=== PATIENT | male | born 1985 | race Caucasian/White ===

== ENCOUNTER 2017-12-14 08:10 | Inpatient (IN) | payer OTHER ==
[~2017-12-14] VITALS: Ht 177.8 cm; Wt 204.3 kg
[~2017-12-14 08:10] MED LIST: ACETAMINOPHEN-1 EACH PO; BACTRIM DS TAB1 EACH PO; MELATONIN3 MG PO; [UNRECOGNIZED DRUG - OTHER] PO
--- NOTE | 2017-12-14 15:01 | NUR ---
PT RECEIVED FROM ED. ADMISSION INTAKE COMPLETED. IV FLUIDS INFUSING D5LR AT 125 ML/HR. PT RATING PAIN 2/10, DELCINED NEED FOR PAIN MEDICATION. PT DENIES NAUSEA, BOWEL TONES HYPOACTIVE, ABD TENDER, HERNIA VISIBLE. PT ON ROOM AIR, LUNG SOUNDS CLEAR. CMS INTACT, WITHOUT EDEMA. SKIN GROSSLY INTACT. PT PROVIDED MOUTH SWABS FOR COMFORT. PT DENIES OTHER NEEDS AT THIS TIME. DISCUSSED PLAN OF CARE.
--- NOTE | 2017-12-14 16:39 | NUR ---
ASKED PATIENT IF HE NEEDED ANYTHING AND HE SAID NO.
--- NOTE | 2017-12-14 17:09 | NUR ---
PT RATING PAIN 4-5/10 AFTER MORPHINE ADMINISTARATION. LR BLOUS COMPLETED. IV ACETOMINOPHEN INFUSING. PT CONTNIUES TO BE FLUSHED. HR 114 ON TELEMETRY.
--- NOTE | 2017-12-14 17:51 | NUR ---
MED REC COMPLETE
[2017-12-14] MEDS ORDERED: IBUPROFEN200 MG PO (17:52)
--- NOTE | 2017-12-14 17:55 | NUR ---
PRESURGICAL WIPES COMPLETED. INFORMED CONSENT SIGN AND PLACED ON CHART. PT RESTING IN BED. PT DENIES OTHER NEEDS AT THIS TIME.
--- NOTE | 2017-12-14 19:10 | NUR ---
SHIFT REPORT RECIEVED. PATIENT RESTING IN BED. STATES HIS PAIN IS WELL CONTROLLED AT THIS TIME. FAMILY IN ROOM. SURGERY STAFF UP TO ROOM TO TAKE PATIENT FOR SURGERY. 2000 DOSE OF ABX SCANNED AND GIVEN TO ADVERTISING COPYWRITER.
--- NOTE | 2017-12-14 19:25 | NUR ---
PT DOWN TO OR VIA BED AT THIS TIME.AWAKE, CALM, ACOMPANIED BY 2 PRINCIPAL NETWORK ARCHITECT'S
--- NOTE | 2017-12-14 22:00 | NUR ---
PT ARRIVES TO ICU ROOM 129 POST OP RECOVERY PT, ACCOMPANIED BY PACU NURSES AND ANESTHESIA.
--- NOTE | 2017-12-14 22:30 | NUR ---
ASSUMED CARE OF PT FROM JOSE GUADALUPE CLARK, REPORT GIVEN. PT IS RESTING COMFORTABLE, AWAKENS EASILY TO VOICE AND DENIES PAIN AT THIS TIME. RESTING HR IN THE 90'S. JPX3 IN PLACE WITH SMALL AMT CLOUDY FLUID IN ALL. RT IN WORKING WITH PT, PT PLACED ON BIPAP, 30% FIO2 12/5 SPO2 95%.
--- NOTE | 2017-12-14 22:39 | NUR ---
12/14/17 2239 Heather Dean RT IS AT THE BEDSIDE SETTING UP BIPAP MACHINE. VERBAL REPORT IS GIVEN TO CCU RN, ELIESER AND HER QUESTIONS ARE ANSWERED. DR. SWEENEY IS IN TO SPEAK WITH THE PATIENT AND HIS QUESTIONS ARE ANSWERED.
--- NOTE | 2017-12-14 23:30 | NUR ---
PT CONT TO REST COMFORTABLE WEARING BIPAP, SPO2 98% RR 18 FIO2 30% 07/19, URINE QUANTITY SUFFICIENT. BPS A BIT ELEVATED, WILL CONTINUE TO MONITOR. EX SPOUSE MELLY CALLED AND GIVEN UPDATE.
--- NOTE | 2017-12-15 01:04 | NUR ---
PT CONT TO REST WEARING BIPAP, VSS.
--- NOTE | 2017-12-15 01:05 | NUR ---
URINE OUTPUT 75ML/HR THE LAST TWO HOURS. HR 80'S RR 18 SPO2 100% ON BIPAP.
--- NOTE | 2017-12-15 02:13 | NUR ---
BP'S STILL HIGH, PT AWAKE NOW, MORPHINE 5MG IV GIVEN FOR ABD PAIN. BIPAP OFF PER REQUEST, SPO2 96% ON ROOM AIR. WATER GIVEN PER REQUEST, PT ADVISED TO START WITH SLOW SIPS. HR REMAINS 90'S, WILL CONT TO MONITOR BP AND URINE OUTPUT.
--- NOTE | 2017-12-15 02:30 | NUR ---
BP DOWN AFTER GIVEN MORPHINE, PT RESTFUL BACK TO SLEEPING WEARING BIPAP.
--- NOTE | 2017-12-15 04:37 | NUR ---
AWAKENS FOR ASSESSMENT, BACK TO SLEEP WITH BIPAP ON
--- NOTE | 2017-12-15 06:02 | NUR ---
AWAKENS AND ASKS FOR PAIN MEDICINE. MARQUEZ REMOVED. IV ABX HUNG AND PRN MORPHINE GIVEN, BIPAP REMOVED AND PT O2 SATS 94% ON ROOM AIR.
--- NOTE | 2017-12-15 08:30 | NUR ---
IN PT ROOM FOR INITIAL ASSESSMENT. PT UP IN RETURNED TO BED FROM RECLINER DUE TO POSITIONAL DISCOMFORT. PT IS ALERT AND ORIENTED TIMES 4. NO COMPLAINTS OF PAIN. SURGICAL SITE DRESSINGS ARE CLEAN, DRY AND INTACT. NO DRAINAGE FROM JOANA SITES AT THIS TIME. PT TOLERATING CLEAR LIQUIDS WITHOUT COMPLAINTS OF PAIN, DISCOMFORT, OR NAUSEA. PT RESTING COMFORTABLY IN BED, CALL LIGHT WITHIN REACH. PT PUT BIPAP BACK ON WHILE RESTING. NO FURTHER REQUESTS AT THIS TIME.
--- NOTE | 2017-12-15 10:00 | NUR ---
IN TO ASSIST PT WITH BIPAP PLACEMENT. PT STATES PAIN IS WELL CONTROLLED. CALL LIGHT WITHIN REACH. NO FURTHER REQUESTS AT THIS TIME.
--- NOTE | 2017-12-15 10:27 | NUR ---
PT CURENTLY SLEEPING APPEARS TO BE COMORFTABLE AT THIS TIME. RESP RATE REGULA AND UNLABORED AT THIS TIME. HE IS SLEEPING WITH THE HOB ELEVATED. SCD'S INPLACE AND ON.
--- NOTE | 2017-12-15 10:53 | NUR ---
PT UP AND BACK TO BED FROM BATHROOM, STATES HIS PAIN LEVEL NOW IS A "9" WITH A GOAL OF 2-3. PT DENIES NAUSEA OR SOB. PAIN MEDICATION GIVEN PER ORDER. WILL CONTINUE TO MONITOR PAIN. CALL LIGHT WITHIN REACH.
--- NOTE | 2017-12-15 10:53 | NUR ---
PT AMBULATED TO BATHROOM AND BACK TO BED, ONE PERSON ASSIST DUE TO IV LINE AND HEART MONITOR.
--- NOTE | 2017-12-15 11:08 | NUR ---
PT STATES PAIN IS "NOW A 6 AND GOING DOWN". DENIES SOB OR NAUSEA. PT RESTING IN BED WITH CALL LIGHT WITHIN REACH.
--- NOTE | 2017-12-15 12:46 | NUR ---
pt has family in the room visiting with him at this time. pt alert and oriented x4, vitals wnl.
--- NOTE | 2017-12-15 13:34 | NUR ---
PT UP TO THE BATHROOM VOIDED AND THEN BACK TO BED, SCD'S INPLACE.
--- NOTE | 2017-12-15 14:12 | NUR ---
PT RESTING IN BED-ALERT AND ORIENTED. HE SAID HE IS FEELING MUCH BETTER, AND SAID TRIED TO SLEEP, BUT HAD LITTLE LUCK. PT STATED HE UNDERSTOOD PAIN SCALE-HE USES IT AT WORK. EXTENDED A BLESSING, WILL FOLLOW NEEDED
--- NOTE | 2017-12-15 14:50 | NUR ---
PT BACK UP TO THE BATHROOM HAVING TO HAVE BM AT THIS TIME. ASSISTED PT WITH ALL THE TUBES AND LINES AT THIS TIME. PT DENIES PAIN AT THIS TIME.
--- NOTE | 2017-12-15 15:07 | NUR ---
PT UP TO THE BATHROOM VOIDED AND HAD NO BM AT THIS TIME. BACK TO BED, CPAP INPLACE TO SLEEP.
--- NOTE | 2017-12-15 17:43 | NUR ---
DR SWEENEY INTO SEE PT TRANSFER ORDERS FOR PT TO RETURN TO THE M/S UNIT [facility]. PT WAS PLACED ON TELE #1. PT HAS FRIST DEGREE AV BLOCK. PT IS CURRENTLY UP IN THE ROOM VOIDING WELL AND DINNER ORERED. PT BED AND ALL PERSONAL BELONGINGS WILL GO WITH PT.
--- NOTE | 2017-12-15 18:04 | NUR ---
REPORT GIVEN TO RAFAT ALL QUESTIONS ANSWERED AT THIS TIME. ABX'S AND CHART TAKEN TO M/S UNIT ALSO AT THIS TIME. PT WAS TRANSFERED VIA AMBULATION.
--- NOTE | 2017-12-15 18:33 | NUR ---
REPORT RECIEVED FROM CLARISSA CLARK. ROUNDED WITH DR. VALERO WHO IS CONSULTING ON PATIENT. MANUAL BLOOD PRESSURES NEED TO BE DONE WITH LARGE CUFF, NO WRIST CUFF TO BE USED FROM NOW ON. PATIENT LUNG SOUNDS CLEAR, HR REGULAR. ON TELE #1. PATIENT TOLERATED LOW FIBER DIET WELL, NO NAUSEA. BOWEL TONES ACTIVE THROUGHOUT. JOANA DRAINS DRAINING WELL. AND PUNCTURE SITES C/D/I. NO SIGNS OF INFECTION.
--- NOTE | 2017-12-15 18:49 | NUR ---
LEFT MESSAGE FOR DR. SWEENEY, PATIENT WANTING TO BE SL, PATIENT URINE OUTPUT >3400 ML OUT.
--- NOTE | 2017-12-15 19:05 | NUR ---
SHIFT REPORT RECEIVED. PATIENT RESTING IN BED. NO NEEDS AT THIS TIME. GOOD PAIN CONTROL.
--- NOTE | 2017-12-15 20:13 | NUR ---
pt resting in bed alert and oriented. pt requested tn take his temp, 98.3
--- NOTE | 2017-12-15 21:25 | NUR ---
VITALS AND I&OS DONE AND CHARTED. BEDSIDE TABLE AND CALL LIGHT WITHIN REACH. PT NEEDS NOTHING ELSE AT THIS TIME.
--- NOTE | 2017-12-15 22:00 | NUR ---
PATIENT ASSESSMENT COMPLETED. PATIENT IS RESTING IN BED USING CELL PHONE. IV ABX STARTED. IV SITE WNL. PAIN WELL CONTROLLED AT THIS TIME. ABD IS ROUND, FIRM, AND TENDER. BOWEL SOUNDS ACTIVE. DRAINS IN PLACE, OUTPUT IS PURULENT. DRESSINGS ARE INTACT WITH SMALL AMOUNT OF DRAINAGE. LUNGS SOUND CLEAR. SCDS IN USE. CMS INTACT. PATIENT'S SKIN IS RED OVER ENTIRE UPPER BODY. HE DENIES ITCHING AND THE SKIN IS NOT HOT TO THE TOUCH. VS WNL. PATIENT DENIES ANY NEEDS AT THIS TIME. TOLERATING ORAL FLUIDS.
--- NOTE | 2017-12-16 00:05 | NUR ---
PATIENT MOVED TO ROOM 109. PATIENT REQUEST PRN PAIN MEDS WHICH WERE PROVIDED. HE DENIES TOILETING NEEDS AT THIS TIME. HE WENT BACK ON THE CPAP. CALL LIGHT IN REACH.
--- NOTE | 2017-12-16 02:25 | NUR ---
PATIENT AWAKE AND OFF CPAP. SAYS HE HAS BEEN UP A WHILE, STATES THIS IS NORMAL FOR HIM TO SLEEP IN SMALL CHUNKS. IV ABX STARTED. PATIENT DENIES NEEDS. PAIN 2/. FRESH WATER PROVIDED. JOANA DRAINS ON RIGHT SIDE EMPTIED FOR 35MLS OF SEROSANGUINEOUS FLUID. DRAIN ON LEFT SIDE HAS MINIMAL DRAINAGE.
--- NOTE | 2017-12-16 06:12 | NUR ---
pt up to bathroom to void assist in tubes then pt independent to bathroom ambulating. pt reports pain increased from 5/10 to 8/10 with activity. pt administered two tabs percocet at this time.
--- NOTE | 2017-12-16 06:50 | NUR ---
PATIENT SLEPT OFF AND ON THROUGHOUT THE SHIFT. PAIN CONTROLLED WITH PRN PERCOSET. CPAP WHILE SLEEPING. MANUAL BP ONLY. MOVED FROM 108 TO 109. NOT OUT OF BED. TOLERATING DIET. LAP SITES COVERED, WNL. DRAINS X3, MODERATE OUTPUT. NEW IV SITE THIS AM, IV ABX.
--- NOTE | 2017-12-16 06:56 | NUR ---
IV SITE STARTED TO BURN. APPEARS INFILTRATED. NEW SITE STARTED BY DELGADO GRANDE.
--- NOTE | 2017-12-16 07:40 | NUR ---
PATIENT TRANSFERRED FROM BED TO CHAIR. 1 PERSON SBA. PATIENT NOW SITTING UP IN CHAIR. CALL LIGHT WITHIN REACH. WASHCLOTH FOR FACE. NO OTHER NEEDS AT THIS TIME.
--- NOTE | 2017-12-16 10:03 | OR ---
[facility] [address], [place] [address] Signed DATE OF OPERATION: 12/14/2017 SURGEON: Derek Sweeney MD PREOPERATIVE DIAGNOSES: 1. Generalized peritonitis with free air, probable perforated diverticulitis. 2. Morbid obesity. Weight 450 pounds. 3. Incarcerated supraumbilical hernia fat only, no hollow viscus. POSTOPERATIVE DIAGNOSIS: 1. Generalized peritonitis with free air, probable perforated diverticulitis. 2. Morbid obesity. Weight 450 pounds. 3. Incarcerated supraumbilical hernia fat only, no hollow viscus. PROCEDURES: 1. Laparoscopic washout of peritoneal inflammatory fluid. 2. Placement of Ollie drains x3 (prolonged complicated difficult). ANESTHESIA: General endotracheal, Trish brown GEOGRAPHY DEPARTMENT CHAIR and local 10 mL of 0.25% Marcaine with epinephrine. 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 He is accompanied by his significant other. He had the sudden onset earlier today of severe left lower abdominal pain and presented to the emergency room where he was evaluated by Dr. Akers included a CT scan of the abdomen showing free intraperitoneal air scattered above and below the level of the mid abdomen and diverticular changes thus making the lesion accounting for free intraperitoneal likely perforated diverticulitis. He has been fluid resuscitated, given intravenous antibiotics, and is now to undergo laparoscopy with laparoscopic washout and placement of drains. It is noted he does have an incarcerated hernia entirely a fat that is in the supraumbilical area. Other options of management have been reviewed including laparotomy with La Nena's resection and other interventions. However, I think it is particularly appropriate in his situation to avoid ostomies of any type if possible under the circumstances of his Electronically Signed By: DEREK SWEENEY MD 12/16/17 1003 PATIENT NAME: ROGELIO RASMUSSEN OPERATIVE REPORT DATE OF : 89 REPORT #: [id number] PHYSICIAN: DEREK SWEENEY MD PCP: MONIQUE OBRIEN DO REPORT IS CONFIDENTIAL AND NOT TO BE RELEASED WITHOUT AUTHORIZATION [facility] [address], [place] [address] Signed very significant obesity. The risks of bleeding, infection, cardiopulmonary complications, and postoperative issues were all reviewed in detail with the patient and his girlfriend. They understand. FINDINGS: Indeed there was purulent material along the right paracolic gutter and left paracolic gutter. There was indeed incarcerated hernia of omental fat just above the umbilicus, the fascial defect being at least 4-6 cm. This was not in any way taken down so as to minimize chances of hollow viscus becoming incorporated. There was no fibrinous exudate and he would be considered Hinchey class 3 generally speaking. I saw no evidence of a perforated ulcer. The gallbladder was visualized and normal. The liver had marked fatty infiltration. Of note, the patient was a somewhat challenging airway to secure initially and his extubation was challenging to say the least, but ultimately accomplished without problem and he is mentating and doing quite well immediately postoperatively. DESCRIPTION OF PROCEDURE: The patient was brought to the operating room given a general endotracheal anesthetic using GlideScope technology and well performed indeed. A Carney catheter was placed. Sequential compression device stockings were in place. Preoperative antibiotic meropenem was already infusing. The abdomen was clipped and prepared with chlorhexidine solution and draped sterilely. He had an impressively large body related to his obesity. The palpable non reducible hernia in the supraumbilical position, which represented only fat was avoided. Given the particulars, an epigastric 10 mm port was placed. With a Marianne cannula technique, pneumoperitoneum achieved to a level of 14 mmHg of carbon dioxide gas. The laparoscope was entered into the abdomen and a purulent exudate was noted along the right paracolic gutter and on the left side as well. There was no sign of infarcted bowel or anything of that sort. Under direct visualization, a right-sided 5 mm port was placed in the right mid abdomen and subsequently another a bit lower on the right side. I changed the position to be on the left side of the table and interrogated the descending colon, the left colon there were few adherent tinea epiploica to what was likely a very recent perforation. The actual perforation could not be identified. There was no sign of well-formed abscess or anything of that sort. Copious irrigation was undertaken with antibiotic containing saline solution. Irrigation was taken in the upper abdomen as well as the pelvis and essentially all 4 quadrants of the abdomen. At least 10 L of fluid were used for this endeavor. A left-sided 5 mm port was placed allowing for placement of a 7 mm Ollie drain along the left paracolic gutter. This was secured to the skin with nylon suture. Electronically Signed By: DEREK SWEENEY MD 12/16/17 1003 PATIENT NAME: ROGELIO RASMUSSEN OPERATIVE REPORT DATE OF : [birth year] REPORT #: [id number] PHYSICIAN: DEREK SWEENEY MD PCP: MONIQUE OBRIEN DO REPORT IS CONFIDENTIAL AND NOT TO BE RELEASED WITHOUT AUTHORIZATION [facility] [address] [place], [place] [address] Signed I returned to the left side of the table allowing for irrigation of the right paracolic gutter more thoroughly and aspiration directly over the right lobe of the liver as well. Two additional drains were placed, one in the right paracolic gutter and the other in the perihepatic space centrally in the subhepatic space and portion of the right lateral lobe of the liver. Once nearly all of the irrigation fluid had been returned (greater than 9 L) and drains secured and plans were made for closure. The epigastric port site was closed with interrupted 0 Vicryl suture. Notably, all the other sites were 5 mm and of very low chance of hernia problem. Extubation of the patient was challenging due to his plethoric nature was done safely and he did require a fair amount of all hands-on deck support for his airway with mask ventilation, but ultimately he completely recovered, was awake and alert and moving all extremities without problem. He is transferred to the bariatric bed safely and transferred to intensive care for further management. The operation was rather prolonged, complicated, and difficult, but accomplished safely. MD ISAIAS Thomas/BETH /[id number] cc: Asif Akers Copies: ASIF AKERS ~ Electronically Signed By: DEREK SWEENEY MD 12/16/17 1003 PATIENT NAME: ROGELIO RASMUSSEN OPERATIVE REPORT DATE OF : 89 REPORT #: [id number] PHYSICIAN: DEREK SWEENEY MD PCP: MONIQUE OBRIEN DO REPORT IS CONFIDENTIAL AND NOT TO BE RELEASED WITHOUT AUTHORIZATION
--- NOTE | 2017-12-16 10:03 | HP ---
[facility] [facility] [address], [place] [address] Signed ADMISSION DATE: 12/14/2017 REASON FOR ADMISSION: Free intraperitoneal air, probable perforated diverticulitis. 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 He is accompanied by his significant other today. He had a sudden onset of lower abdominal pain and marked persistent abdominal pain and presented to the emergency room where he was evaluated thoroughly by Dr. Akers. In the course of his evaluation, he was found to be somewhat toxic appearing and although hemodynamically stable, clearly had significant abdominal pain for which a CT scan was performed showing free intraperitoneal air and diverticulosis, most consistent with perforated diverticulitis. He is admitted for further evaluation and care after initiation of antibiotics and preliminary orders. PAST MEDICAL HISTORY: Does include morbid obesity of 450 pounds. He has not yet taken direct measures for weight loss, so has been "thinking about it." He takes no medications chronically. He denies any sleep apnea or diabetes. SOCIAL HISTORY: He has a significant other, who has a son of his, born in 2011. He smokes one pack of cigarettes a day. Drinks vodka twice a month or so. No persistent or binge drinking. His primary care physician is Dr. Obrien. REVIEW OF SYSTEMS: He denies any chest pain, dysphagia, hematemesis or blood per rectum. He does not feel excessively thirsty at this time. PHYSICAL EXAMINATION: GENERAL: Morbidly obese, white man accompanied by his ex HEENT: His mucous membranes are slightly dry. His trachea is midline. He is able to open his mouth quite well and his airway is not as precarious as one might imagine given his advanced weight. NECK: Normal. CHEST: Shows diminished breath sounds. HEART: Regular without murmur. ABDOMEN: Quite obese, soft. There is a palpable non reducing hernia in the Electronically Signed By: DEREK SWEENEY MD 12/16/17 1003 PATIENT NAME: ROGELIO RASMUSSEN HISTORY AND PHYSICAL DATE OF : 89 REPORT #: [id number] PHYSICIAN: DEREK SWEENEY MD PCP: MONIQUE OBRIEN DO REPORT IS CONFIDENTIAL AND NOT TO BE RELEASED WITHOUT AUTHORIZATION [facility] [address], [place] [address] Signed supraumbilical area. There is mild tenderness in the left lower abdomen. No sign of ascites grossly. EXTREMITIES: No clubbing, cyanosis, or edema. LABORATORY DATA: Show a white count of 7.8, hematocrit 45.7, platelets 225,000. Chem profile is normal. Glucose is 116. Lactic acid is 1.2. Liver enzymes normal. Lipase 13. Urinalysis is normal. Coag studies show an INR of 0.9. MEDICATIONS: Reviewed, which show Tylenol cold formula 2 tablets p.o. at bedtime as needed and melatonin 3 mg p.o. at bedtime. ASSESSMENT AND PLAN: I reviewed the CT scan in detail with Dr. Horton, radiologist. He does have free air, which includes small bubbles in the region of the liver and elsewhere. He clearly does have a hernia just above the umbilicus, probably basically an umbilical hernia with omental fat. He does have diverticular changes associated with some inflammation, but no sign of abscess per se. Under the circumstances of his great obesity and his general toxicity, I would recommend laparoscopy, laparoscopic washout of peritoneal cavity, placement of drain in the appropriate position in the region of the sigmoid perforation, this is a measure to bridge to definitive resection as appropriate. In his particular situation, additional fluids will be needed now and continued broad-spectrum antibiotics. He has already been started on Unasyn previously by Dr. Akers from the emergency room. The risks of bleeding, infection, and importantly need for conversion to open operation with possible resection of the colon with a Hinchey grade 4 picture is present requiring a temporary colostomy. If there is any way to convert him from a laparotomy with ostomy that would be beneficial given his body habitus and so on. I discussed all this with the patient and his significant other and they understand and agree. MD ISAIAS Thomas/MODL /[id number] Electronically Signed By: DEREK SWEENEY MD 12/16/17 1003 PATIENT NAME: ROGELIO RASMUSSEN HISTORY AND PHYSICAL DATE OF : 89 REPORT #: [id number] PHYSICIAN: DEREK SWEENEY MD PCP: MONIQUE OBRIEN DO REPORT IS CONFIDENTIAL AND NOT TO BE RELEASED WITHOUT AUTHORIZATION [facility] [address] [place] [id number] Signed cc: DO Jose A Diazg Akers Copies: MONIQUE OBRIEN,ASIF ~ Electronically Signed By: DEREK SWEENEY MD 12/16/17 1003 PATIENT NAME: GRADYROGELIO YUKI HISTORY AND PHYSICAL DATE OF : 89 REPORT #: [id number] PHYSICIAN: DEREK SWEENEY MD PCP: MONIQUE OBRIEN DO REPORT IS CONFIDENTIAL AND NOT TO BE RELEASED WITHOUT AUTHORIZATION
--- NOTE | 2017-12-16 10:32 | NUR ---
PATIENT ATE A GOOD BREAKFAST, UP WALKING IN THE ROOM TO STRETCH AT THIS TIME. PAIN IS 3/10 AT THIS TIME. ALL 3 JOANA'S HAVE MINIMAL SEROSANGUINOUS DRAINAGE. PATIENT REMAINS IN SINUS RYTHEM ON TELE#1. BOWEL TONES ACTIVE X4, LUNGS CLEAR BUT DEMINISHED IN THE BASES.
--- NOTE | 2017-12-16 10:58 | NUR ---
PATIENT SITTING UP IN BED. FAMILY MEMBERS IN ROOM. NO OTHER NEEDS AT THIS TIME.
--- NOTE | 2017-12-16 14:38 | NUR ---
PATIENT'S PAIN IS UNDER CONTROL AT 3/10 AT THIS TIME. PATIENT IS RESTING IN BED. VISITING AT THIS TIME.
--- NOTE | 2017-12-16 14:46 | NUR ---
PATIENT SITTING UP IN BED RELAXING. CALL LIGHT WITHIN REACH. FRESH ICE WATER. NO OTHER NEEDS AT THIS TIME.
--- NOTE | 2017-12-16 15:30 | NUR ---
PATIENT'S PAIN REMAINS 3/10. SMALL AMOUNT OF DRAINAGE ON ALL 3 JOANA DRESSINGS. DRESSINGS ALL CHANGED. AREA AROUND EACH DRAIN CLEANED AND NEW DRAIN SPONGES PLACED AROUND EACH SITE AND SECURED WITH SILK TAPE. PATIENT HAS A LARGE NUMBER OF FAMILY AT BEDSIDE AND IS NOW VISITING. FAMILY ARRIVED AFTER I HAD BEGUN DRESSING CHANGES.
--- NOTE | 2017-12-16 18:44 | NUR ---
PATIENT HAS BEEN UP TO THE RECLINER FOR ALL 3 MEALS AND HAS BEEN EATING WELL. AM AND MID-DAY VS WITH MANUAL BLOOD PRESSURES HAVE BEEN OK. PATIENT'S IV WAS SALINE LOCKED THIS AM AND PATIENT WENT TO PO ANTIBIOTICS AND HAS TOLERATED THAT WELL. PATIENT VOIDING WELL AND UP TO THE BATHROOM WITH STANDBY ASSIST TO USE URINAL. PATIENT'S EVENING VITAL SIGNS REVIELED PATIENT'S ORAL TEMP TO BE 101.7F AND MANUAL DIASTOLIC B/P AT 90 WITH PATIENT HAVING HOT FLASHES THEN CHILLS. CALLED HE WAS CONSULTING. INFORMED ME HE WAS ONLY MANAGING B/P AND SAID TO CALL . 183 CALLED AND INFORMED HIM OF THE ABOVE INFORMATION AND HE ASKED TO ORDER BLOOD CULTURES X1. THIS WAS ORDERED IN THE COMPUTER AND CALLED TO SANGITA IN THE LAB TO COME AND DRAW THE CULTURE. PATIENT HAS ALSO BEEN GIVEN PERCOCET 2 TABS THREE TIMES TODAY WITH GOOD PAIN RELIEF THE FIRST 2 TIMES AND THE TRHIRD TIME JUST BEFORE THIS NOTE AND WILL NEED TO BE REASSESSED. GIVING PM REPORT.
--- NOTE | 2017-12-16 18:47 | NUR ---
PATIENT SITTING UP IN BED. PATIENT STATES PAIN LEVEL IS A 6 OUT 0F 10. RN NOTIFIED ABOUT PAIN LEVEL AND TEMPERATURE. CALL LIGHT WITHIN REACH. NO OTHER NEEDS AT THIS TIME.
--- NOTE | 2017-12-16 19:20 | NUR ---
SHIFT REPORT RECEIVED. LAB IN ROOM COLLECTING BLOOD CULTURES. PATIENT IS RED IN THE FACE BUT STATES HE FEELS "OKAY". DENIES PAIN AT THIS TIME. ENCOURAGED HIM TO GET UP TO WALK. HE AGREED.
--- NOTE | 2017-12-16 19:53 | NUR ---
PATIENT WALKING LARGE LAPS AROUND MED-SURG FLOOR. TOLERATING WELL. OCCATIONAL COUGHING. DENIES SOB. HR CONSISTENTLY IN LOW 130'S.
--- NOTE | 2017-12-16 21:20 | NUR ---
EVENING MEDS GIVEN. PATIENT RESTING IN BED. VISITING WITH FAMILY. PATIENT APPEARS COMFORTABLE. HE STATES HE IS VERY TIRED FROM WALKING. BREATHING IS EASY AND NONLABORED. HR 90'S. TELE 1. UPPER BODY AND FACE CONTINUE TO BE RED AND BLOTCHY. HE DENIES ITCHY, EXCEPT FOR HIS ABD, WHICH HE BELIEVES IF FROM IT BEING SHAVEN PRIOR TO SURGERY. HIS TEMP HAS NORMALIZED AT 98.5 F ORAL. LUNGS ARE CLEAR. ENCOURAGED COUGH & DEEP BREATHING. ABD IS LARGE, ROUND, AND TENDER. BOWEL SOUNDS ACTIVE. DRAINS IN PLACE, DRESSING C/D/I. MINIMAL DRAINAGE NOTED, OUTPUT IS CLEAR/YELLOW. SCDS IN USE. PAIN CONTROLLED AT 4/10. PATIENT DENIES NEEDS FOR PRN PERCOSET. FRESH WATER PROVIDED. PATIENT WANTING SLEEP AID, HE NORMALLY TAKES MELETONIN AND TYLENOL PM. WILL CALL
--- NOTE | 2017-12-16 21:45 | NUR ---
CALLED. NO ANSWER, LEFT MESSAGE.
--- NOTE | 2017-12-16 21:59 | NUR ---
VITALS ANDS I&OS DONE AND CHARTED. BEDSIDE TABLE AND CALL LIGHT WITHIN REACH. PT NEEDS NOTHING ELSE AT THIS TIME.
--- NOTE | 2017-12-16 22:00 | NUR ---
PATIENT'S FAMILY LEFT. CPAP SET UP FOR PATIENT TO USE FOR THE NIGHT.
--- NOTE | 2017-12-17 02:00 | NUR ---
PATIENT OFF THE CPAP FOR NOW. STATES IT IS "TOO MUCH". HE WAS UP TO THE BATHROOM. REPORTS GOOD PAIN CONTROL.
--- NOTE | 2017-12-17 04:30 | NUR ---
PATIENT UP TO HAVE A BM. MOSTLY SOFT. HE IS STARTING TO HAVE INCREASED PAIN. REQUESTED 1 TAB PERCOSET, WHICH WAS GIVEN TO HIM.
--- NOTE | 2017-12-17 05:32 | NUR ---
PATIENT SLEPT OFF AND ON THROUGHOUT SHIFT. PAIN WELL CONTROLLED. 1 TAB NORCO GIVEN X1. PATIENT REMAINS AFEBRILE THIS SHIFT. HE AMBULATED IN THE HALLWAYS MULTIPLE TIMES. ONLY WORE THE CPAP PART OF THE NIGHT. HAD A LARGE SOFT BM THIS AM. DRAINS HAVE PRODUCED MINIMAL YELLOW DRAINAGE. DRESSING C/D/I. TELE 1, HR IN 80-80 AT REST, 120-130 WHEN AMBULATING. UPPER BODY CONTINUES TO BE RED/BLOTCHY. INDEPENDENT IN THE ROOM. IV SL.
--- NOTE | 2017-12-17 07:30 | NUR ---
VITALS AND I&OS DONE AND CHARTED. FRESH WATER GIVEN. BEDSIDE TABLE AND CALL LIGHT WITHIN REACH. PT NEEDS NOTHING ELSE AT THIS TIME.
--- NOTE | 2017-12-17 08:42 | NUR ---
PATIENT UP AMBULATING IN HALLS. COMPLAINTS OF PAIN IN LOWER ABDOMEN, 3/10 ON PAIN SCALE. TOLERABLE. FULL BODY ASSESMENT DONE, PUNCTURE SITES INTACT, DRAINS CONTINUE TO PRODUCE LIGHT CLOUDY FLUID. BOWEL TONES ACTIVE THROUGOUT. PATIENT STATES " I JUST WISH I WOULD HAVE SLEPT BETTER LAST NIGHT. PATIENT IS REQUESTING MELATONIN AND BENADRYL FOR HS TONIGHT.
--- NOTE | 2017-12-17 08:48 | NUR ---
PATIENT SITTING UP IN BED. FAMILY MEMBERS IN ROOM. FRESH ICE WATER. CALL LIGHT WITHIN REACH. NO OTHER NEEDS AT THIS TIME.
--- NOTE | 2017-12-17 10:38 | NUR ---
PATIENT AMBULATED IN THE HALLS, INDEPENDENT. PATIENT SITTING UP IN BED NOW. FAMILY MEMBERS IN ROOM. PATIENT REQUESTING PAIN MEDICATION. RN NOTIFIED. CALL LIGHT WITHIN REACH. NO OTHER NEEDS AT THIS TIME.
--- NOTE | 2017-12-17 11:30 | NUR ---
PATIENT UP AMBULATING IN HALLS. FAMILY TO FLOOR TO VISIT. PROVIDED ICE WATER. PATIENT STATES " I AM FEELING BETTER TODAY".
--- NOTE | 2017-12-17 14:49 | NUR ---
PATIENT RELAXING IN BED AND APPEARS TO BE SLEEPING. FAMILY MEMBER IN ROOM. FRESH ICE WATER. JPs X3 DRAINED. RN NOTIFIED ABOUT TEMPERATURE. CALL LIGHT WITHIN REACH. NO OTHER NEEDS AT THIS TIME.
--- NOTE | 2017-12-17 15:43 | NUR ---
TALKED WITH AT THIS TIME, REPORTED TO MD THAT PT REQUESTED SLEEP AID. ORDERS OBTAINED
--- NOTE | 2017-12-17 17:40 | NUR ---
PATIENT HAS BEEN UP THROUGHOUT DAY AMBULATING IN HALLS. PAIN WELL CONTROLLED WITH PERCOCET. PATIENT JOANA DRAINS STILL INTACT, DR. SWEENEY WOULD LIKE TO SEE THE FLUID BE LESS CLOUDY, AMOUNT HAS DECREASED. SURGICAL PUNCTURE SITES C/D/I. BOWEL TONES ACTIVE THROUGHOUT.
--- NOTE | 2017-12-17 19:43 | NUR ---
RECIEVED BEDSIDE REPORT FROM CLAY CLARK. PT IN BED ON PHONE. REPORTS NO PAIN AT THIS TIME. CALL LIGHT WITHIN REACH. PERSONAL ITEMS AT BEDSIDE.
--- NOTE | 2017-12-17 22:10 | NUR ---
ASSESSMENT COMPLETED. PT REPORTS NO PAIN AT THIS TIME. DRAINS ARE DRAINING A SEREOUS FLUID THAT IS A BIT CLOUDY IN COLOR. OP SITES DRY AND INTACT WITH STERI STRIPS IN PLACE. HEART SOUNDS DISTANT BUT REGULAR. LUNGS ARE CLEAR AND DIM I THE BASES. ABDOMEN IS TENDER AND FIRM WITH AN UMBILIAL PROTRUSION. PULSES +2. RESPIRATIONS ARE EQUAL AND NONLABORED.
--- NOTE | 2017-12-17 23:32 | NUR ---
PT IN BED SLEEPING. REMOVED CPAP MACHINE. REPORTS HE WANTS TO KEEP IT OFF AT THE MOMENT. CALL LIGHT WITHIN REACH
--- NOTE | 2017-12-18 01:46 | NUR ---
PT APPEARS TO BE SLEEPING. CPAP IN PLACE. CALL LIGHT WITHIN REACH.
--- NOTE | 2017-12-18 03:00 | NUR ---
PT APPEARS TO BE SLEEPING. RESPIRATIONS ARE EQUAL AND NONLABORED. PT HAS CPAP OFF AT THIS TIME. CALL LIGHT IS WITHIN REACH.
--- NOTE | 2017-12-18 05:24 | NUR ---
PT SLEPT THROUGHOUT THE NIGHT. NO PAIN MEDICATION GIVEN THIS SHIFT. 30CC OUT FROM DRAINS CLOUDY YELLOW DRAINAGE. BOWEL TONES ACTIVE. LUNGS CLEAR AND DIM. PLAN TO DC TODAY WITH DRAINS UNTIL DRAINAGE CLEARS UP MORE. CONT ORAL CYPRO AND FLAGYL.
--- NOTE | 2017-12-18 08:05 | NUR ---
PT UP, AMBULATED IN HALLS INDEPENDANTLY, TOLERATED WELL.
--- NOTE | 2017-12-18 08:52 | NUR ---
PT IN BED WATCHING TV. DENIED NEED FOR PAIN MEDICATION, REPORTED PAIN TO ABDOMEN IS MINIMAL AT THIS TIME. PERSONAL SUPPLIES AND CALL BUTTON IN REACH.
--- NOTE | 2017-12-18 09:08 | NUR ---
PATIENT RESTING IN BED WATCHING TV. SCD'S ON. PATIENT STATES THAT HE HAS WASHED UP WITH A WASH CLOTH EARLIER THIS AM AND REFUSED A NEW GOWN. CALL LIGHT IN REACH. FRESH ICE WATER IN CUP. NO OTHER NEEDS AT THIS TIME.
--- NOTE | 2017-12-18 10:04 | NUR ---
PATIENT UP TO THE BATHROOM. RN IN ROOM TO SEE PATIENT. NO OTHER NEEDS AT THIS TIME.
--- NOTE | 2017-12-18 10:20 | NUR ---
CLEAN GOWN ON PATIENT. PATIENTS MOTHER IN ROOM TO VISIT.
--- NOTE | 2017-12-18 11:51 | NUR ---
PT IN BED, REPORTS THAT HE HAS NO PAIN AT REST, AND THAT THE PAIN HE HAS WITH MOVEMENT IS TOLERABLE. PERSONAL SUPPLIES AND CALL BUTTON IN REACH.
--- NOTE | 2017-12-18 12:23 | NUR ---
PT LAYING IN BED, WAITING FOR DC ORDERS. HE SEEMS READY TO GO, DISAPPOINTED HE HAS MISSED SEVERAL OF HIS SON'S BASEBALL GAMES. CAN'T HAVE S.FLOWER SEEDS ANY- MORE, SEEMS TO HAVE GOOD ATTITUDE. EXTENDED A BLESSING, WILL FOLLOW NEEDED
[2017-12-18] MEDS ORDERED: CIPROFLOXACIN250 MG PO (14:45)
[2017-12-18] MEDS ORDERED: METRONIDAZOLE250 MG PO (14:45)
[2017-12-18] MEDS ORDERED: CULTURELLE1 EAC1 PO (14:46)
[2017-12-18] MEDS ORDERED: OXYCODON-ACETA1 EAC2 PO (14:46)
[2017-12-18] MEDS ORDERED: NICOTINE PATCH1 EAC1 TD (14:46)
--- NOTE | 2017-12-18 15:48 | NUR ---
GAVE PT DISCHARGE INSTRUCTIONS. QUESTIONS ASKED AND ANSWERED, PT VERBALIZED UNDERSTANDING. IV D/C'D WNL.
--- NOTE | 2017-12-19 12:56 | DS ---
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 He had the sudden onset of lower abdominal pain with marked persistent abdominal pain, and presented to the emergency room where he was evaluated thoroughly by Dr. Stallings. IN the course of evaluation he was noted to have toxicity, and marked tenderness, though hemodynamically stable. A CT scan of the abdomen showed free intraperitoneal air and diverticulosis most consistent with perforated diverticulitis. He is admitted for further evaluation and care. PERTINENT PHYSICAL EXAMINATION: GENERAL: Showed a morbidly obese white man accompanied by his ex-. HEENT: Mucous membranes are slightly dry. Trachea was midline. He was able to open his mouth well. His airway is not seen as precarious. CHEST: Showed diminished breath sounds. HEART: Regular without murmur. ABDOMEN: Quite obese, but soft. There is a palpable nonreducing hernia in the supraumbilical area and on CT scan confirmed to be omentum within the hernia. No sign of hollow viscus within the hernia. He had no ascites grossly. LABORATORY DATA: White count was 7.8, hematocrit 45.7, platelets 225,000, urinalysis normal. Coag studies with an INR of 0.9. HOSPITAL COURSE: The patient was recognized as having perforated viscus, probably related to diverticulitis. His weight is a formidable barrier to typical healthcare, no doubt. Despite that, he underwent laparoscopy with peritoneal lavage, as he had what would be considered Hinchey class III peritonitis related to perforated diverticulitis. He certainly did not have gross fecal contamination. Three drains were placed, one in the left pericolic gutter, another in the right pericolic gutter and another over the dome of the liver on the right side. The herniated omentum was left in situ, as there was no sign of infarction, and certainly there would be no reasonable probability of repair of the hernia at this time, Electronically Signed By: DEREK SWEENEY MD 12/19/17 1256 PATIENT NAME: ROGELIO RASMUSSEN DISCHARGE SUMMARY DATE OF : [birth year] REPORT #: [id number] PHYSICIAN: DEREK SWEENEY MD PCP: CHRIS OBRIEN DO REPORT IS CONFIDENTIAL AND NOT TO BE RELEASED WITHOUT AUTHORIZATION [facility] [address], [place] [address] Signed particularly without mesh, which would be contraindicated in the field of contamination. The fluid within the abdomen was a turbid color. Complete lavage of the abdomen was undertaken to a point of clear fluid, and as much fluid could be removed was done so. His abdominal cavity cultures did ultimately grow Streptococcus anginosus, and E coli, which was essentially pansensitive except erythromycin. He transitioned from meropenem and Flagyl antibiotic to oral antibiotics Cipro and Flagyl. He had progressive recovery and clearance of the drain fluid. He showed no evidence of recurrent sepsis, or increasing abdominal pain, was advanced in his diet to a low-fiber diet. At the time of discharge his drains were largely clear, but I will be leaving them for one more week and remove them in the office setting. He will be maintained on oral antibiotics. In the meantime to include Cipro and Flagyl. We discussed quite candidly his issue of morbid obesity. It is notable that upon wake up from his laparoscopic procedure, he had a fair amount of trouble with his secretions, airway, and so forth requiring considerable amount of manual support. It was also noted that a BiPAP device was quite helpful to him in the early postoperative period, and he almost certainly has significant sleep apnea, for which additional therapy would be appropriate. By time of discharge he is ambulating well. He is having bowel movements. He is maintained on a low-fiber diet without problem. The drains are essentially clear, and his incisional pain is well managed. He will be discharged home anticipating removal of the drains a week or so from now. DISCHARGE MEDICATIONS: 1. Will include. 2. Melatonin 3 mg p.o. at bedtime. 3. Flagyl 500 mg p.o. t.i.d. with meals x10 days. 4. Cipro 750 mg p.o. b.i.d. for 10 days. 5. Culturelle lactobacillus probiotic one cap p.o. b.i.d. with meal. 6. Nicoderm patch 21 mg topically daily. 7. Percocet 7.5/325 1-2 p.o. q.4 hours p.r.n. pain #20 no refill. FOLLOWUP PLANS: He is return to see me next week as described. He will have a followup with Electronically Signed By: DEREK SWEENEY MD 12/19/17 1256 PATIENT NAME: ROGELIO RASMUSSEN DISCHARGE SUMMARY DATE OF : [birth year] REPORT #: [id number] PHYSICIAN: DEREK SWEENEY MD PCP: CHRIS OBRIEN DO REPORT IS CONFIDENTIAL AND NOT TO BE RELEASED WITHOUT AUTHORIZATION [facility] [address] [place], [place] [address] Signed Michela, or his designee, as Dr. Obrien is soon to leave practice locally. It was my recommendation that he consider more strongly bariatric surgical operation to begin weight loss under his circumstances, which he will think about. Additionally, a formal study for sleep apnea and absolutely to quit smoking entirely. He is considering all of these recommendations. DISCHARGE DIAGNOSES: 1. Free intraperitoneal consistent with perforated diverticulitis, status post laparoscopic washout and placement of drains. 2. Morbid obesity. 450 pounds, BMI 64.6. 3. Smoking of 1-2 pack of cigarettes daily. 4. Probable sleep apnea syndrome due to the plethoric airway. MD ISAIAS Thomas/CYNDIL /[id number] cc: Dr. Stallings. Chris Obrien DO Copies: CHRIS OBRIEN DO ~ Electronically Signed By: DEREK SWEENEY MD 12/19/17 1256 PATIENT NAME: ROGELIO RASMUSSEN DISCHARGE SUMMARY DATE OF : [birth year] REPORT #: [id number] PHYSICIAN: DEREK SWEENEY MD PCP: CHRIS OBRIEN DO REPORT IS CONFIDENTIAL AND NOT TO BE RELEASED WITHOUT AUTHORIZATION
== END 2017-12-18 16:06 | disposition home or self-care (01) | DRG 392 ==
LOC: ED 08:10 → MS 13:45 → CCU 13:45 → MS 12-15 18:12
PROVIDERS: ADMIT Surgery
PROC: 3E1M38Z Irrigation of Peritoneal Cavity using Irrigating Substance, Percutaneous Approach (ICD-10-PCS; principal; 2017-12-14 19:00)
PROC: 0W9G40Z Drainage of Peritoneal Cavity with Drainage Device, Percutaneous Endoscopic Approach (ICD-10-PCS; 2017-12-14 19:00)
DX: K57.20 Diverticulitis of large intestine with perforation and abscess without bleeding (principal); K43.6 Other and unspecified ventral hernia with obstruction, without gangrene; Z68.44 Body mass index [BMI] 60.0-69.9, adult; E66.01 Morbid (severe) obesity due to excess calories; G47.33 Obstructive sleep apnea (adult) (pediatric); G47.00 Insomnia, unspecified; F17.210 Nicotine dependence, cigarettes, uncomplicated; R03.0 Elevated blood-pressure reading, without diagnosis of hypertension; B96.20 Unspecified Escherichia coli [E. coli] as the cause of diseases classified elsewhere; B95.4 Other streptococcus as the cause of diseases classified elsewhere; Z79.899 Other long term (current) drug therapy
CPT/HCPCS: 00840; 36415; 74177; 80048; 80053; 80061; 81001; 83036; 83605; 83690; 85025; 85610; 87040; 87070; 87077; 87186; 87205; 94640; 94660; 96361; 96374; 96375; 99285; J0131; J1100; J1170; J1644; J1885; J2185; J2270; J2405; J2543; J3010; J7030; J7120; Q9967

== ENCOUNTER 2022-12-14 05:36 | Emergency (ER) | payer BC ==
[~2022-12-14] VITALS: Ht 177.8 cm; Wt 221.0 kg
[~2022-12-14 05:36] MED LIST changes: +CIPROFLOXACIN250 MG PO; +CULTURELLE1 EAC1 PO; +FLOMAX0.4 MG PO; +IBUPROFEN200 MG PO; +METRONIDAZOLE250 MG PO; +NICOTINE PATCH1 EAC1 TD; +OXYCODON-ACETA1 EAC2 PO; +PERCOCET 5-3251 EACH PO
--- NOTE | 2022-12-14 10:31 | CONS ---
[facility] [address] [place], [place] [address] Signed DATE OF CONSULTATION: 12/14/2022 CHIEF COMPLAINT: Left lower quadrant abdominal pain. HISTORY OF PRESENT ILLNESS: Rogelio is a 37-year-old morbidly obese gentleman with a body mass index of 69.9. He has a history of perforated diverticulitis back in 2018. He also has a fairly large supraumbilical hernia containing fat as well as an umbilical hernia containing fat. At that time, Dr. Cuellar had performed a laparoscopic washout and placement of drains. Apparently, he got better. He tells me he saw Dr. Cuellar in followup. Unfortunately, he does not describe a colonoscopy in followup. He said there was some discussion with his primary care provider about gastric bypass surgery with respect to weight reduction. Unfortunately, his primary care provider has since retired. 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 He woke up this morning with left lower quadrant abdominal pain and recognized it as his diverticular pain. He came to the emergency room for evaluation. Fortunately, he is not systemically ill or toxic and he really does not seem to have much in the way of findings on physical exam other than the hernias. White count is 10.8, but his CT scan does show some inflammatory changes in the proximal sigmoid colon with some scattered foci of free air in the mesentery as well as in the anterior abdominal wall. Of course, it showed the large supraumbilical hernia containing fat as well as a smaller supraumbilical hernia and then an umbilical hernia as well. Fortunately, none of those contain any bowel. In the meantime, he has received cefepime and Flagyl. I was asked to come see him as a local general surgeon on-call. PAST MEDICAL HISTORY: Diverticulitis in 2018, severe morbid obesity, insomnia, supraumbilical epigastric hernias x2 as well as umbilical hernia. Also, fracture of his right leg as a child and a very difficult airway apparently in 2018 for his surgery. PAST SURGICAL HISTORY: Includes his laparoscopy with washout and placement of drains in [address] Cuellar for his perforated diverticulitis. SOCIAL HISTORY: He has been smoking a pack of cigarettes a day for the last few years. He has an occasional drink. 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 Dr. Chris Obrien is his primary care provider who has since retired. He prefers the [facility]. His point of contact is his friend, Lynn Cates at [phone]. Electronically Signed By: ROGELIO DELGADO MD 12/14/22 1031 PATIENT NAME: ROGELIO RASMUSSEN CONSULTATION DATE OF : 89 REPORT #: [id number] PHYSICIAN: ROGELIO DELGADO MD PCP: CHRIS OBRIEN DO REPORT IS CONFIDENTIAL AND NOT TO BE RELEASED WITHOUT AUTHORIZATION [facility] [address] [place] [id number] Signed FAMILY HISTORY: None. REVIEW OF SYSTEMS: He had 10 systems reviewed and he really did not have anything new. ALLERGIES: None. MEDICATIONS: Melatonin and ibuprofen. PHYSICAL EXAMINATION: VITAL SIGNS: His blood pressure is 135/86, his heart rate is 84, his respiratory rate is 18, his temperature is 98.3. He is 95% on room air. He is 5 feet 10 inches at 221 kg with a body mass index of 69.9. GENERAL: Rogelio is a 37-year-old obese gentleman, lying supine semi-recumbent in his ER bed. He does not appear systemically ill or toxic. He is an excellent historian and has significant amount of medical background and therefore has good insight. LUNGS: Clear to auscultation bilaterally. HEART: Regular rate and rhythm without murmur. ABDOMEN: Significantly protuberant and firm at baseline. He has a moderate sized incarcerated umbilical hernia and the overlying skin is a little discolored, but not infected. He has a large 12 to 15 cm incarcerated supraumbilical hernia. I see his previous trocar sites and drain sites that are all well healed. LABORATORY DATA: His white blood count is 10.8, mean cell volume is 86, hemoglobin 17, neutrophils 68. Electrolytes are unremarkable. His liver function tests are negative. Albumin is 3.9. RADIOGRAPHIC STUDIES: CT scan of the abdomen and pelvis is reviewed. He has a fatty liver and the hernias along with some inflammatory changes in his proximal sigmoid colon with scattered foci of free air in the mesentery and the anterior abdomen. ASSESSMENT AND PLAN: Rogelio is a 37-year-old morbidly obese gentleman, who has recurrent perforated sigmoid diverticulitis. His 1st episode was back in 2018 requiring laparoscopic washout and drain placement. Unfortunately, he never had a followup colonoscopy. He has been unable to lose weight. His primary care provider is retired and therefore the discussion of gastric bypass surgery was never fully pursued. I explained to Rogelio that we are a 25-bed critical access hospital and we have just 2 general surgeons here. It is quite difficult for us to handle patients with a body mass index of 50 and higher. He would be much better served at a larger hospital, particularly if they have robotic Electronically Signed By: ROGELIO DELGADO MD 12/14/22 1031 PATIENT NAME: ROGELIO RASMUSSEN CONSULTATION DATE OF : 89 REPORT #: [id number] PHYSICIAN: ROGELIO DELGADO MD PCP: CHRIS OBRIEN DO REPORT IS CONFIDENTIAL AND NOT TO BE RELEASED WITHOUT AUTHORIZATION [facility] [address] [place] [id number] Signed laparoscopic assisted surgery and access the specialists if he needs them in that regard. Also, he apparently had a fairly difficult airway when they intubated him in 2018. I have relayed this to Rogelio and to our ER physician and they are going to look for appropriate arrangements for Rogelio that are much safer for him than our small hospital. He has expressed understanding and agrees with the above plan. Rogelio Delgado MD [facility] /[id number] cc: DO Rogelio Diaz MD Copies: CHRIS OBRIEN ANDREW L MD ~ Electronically Signed By: ROGELIO DELGADO MD 12/14/22 1031 PATIENT NAME: MAURICEROGELIO TAFOYA YUKI CONSULTATION DATE OF : 89 REPORT #: [id number] PHYSICIAN: ROGELIO DELGADO MD PCP: CHRIS OBRIEN DO REPORT IS CONFIDENTIAL AND NOT TO BE RELEASED WITHOUT AUTHORIZATION
[2022-12-14 11:35] VITALS: BP 148/69
== END 2022-12-14 11:39 | disposition short-term general hospital (02) ==
LOC: ED 05:36
DX: K57.20 Diverticulitis of large intestine with perforation and abscess without bleeding (principal); E66.9 Obesity, unspecified; F17.200 Nicotine dependence, unspecified, uncomplicated; Z20.822 Contact with and (suspected) exposure to COVID-19
CPT/HCPCS: 36415; 74177; 80053; 85025; C9803; J0692; J1885; J7030; J7121; Q9967; U0003

== ENCOUNTER 2023-12-07 15:45 | Emergency (ER) | payer OTHER, BC ==
[~2023-12-07] VITALS: Ht 177.8 cm; Wt 218.9 kg
[~2023-12-07 15:45] MED LIST changes: +CEPHALEXIN500 M1 PO
[2023-12-07 17:10] VITALS: BP 141/84
== END 2023-12-07 17:10 | disposition home or self-care (01) ==
LOC: ED 15:45
DX: M25.552 Pain in left hip (principal); W01.10XA Fall on same level from slipping, tripping and stumbling with subsequent striking against unspecified object, initial encounter; E66.9 Obesity, unspecified; G47.00 Insomnia, unspecified; F17.200 Nicotine dependence, unspecified, uncomplicated; Z79.899 Other long term (current) drug therapy
CPT/HCPCS: 73502; 99283-25